=== PATIENT | female | born 1980 | race Caucasian/White ===

== ENCOUNTER 2019-07-28 10:16 | Inpatient (IN) | payer OTHER ==
[2019-07-28 10:42] VITALS: BMI 26.9
--- NOTE | 2019-07-28 11:10 | HP ---
COWS - Scale Resting Pulse: 1= NE 81-100 Sweatin= Chills/Flushing Restless Observation: 0= Sits Still Pupil Size: 0= Normal to Room Light Bone or Joint Aches: 0= None Runny Nose/ Eye Tearin= None GI Upset > 30mins: 2= Nausea/Diarrhea Tremor Observation: 0= None Yawning Observation: 0= None Anxiety or Irritability: 0= None Goose Flesh Skin: 0=Smooth Skin COWS Score: 4 CIWA Score - Admission Criteria OASAS Guidelines: Admission for Medically Managed Detox: Requires at least one of the followin. CIWA greater than 12 2. Seizures within the past 24 hours 3. Delirium tremens within the past 24 hours 4. Hallucinations within the past 24 hours 5. Acute intervention needed for co occurring medical disorder 6. Acute intervention needed for co occurring psychiatric disorder 7. Severe withdrawal that cannot be handled at a lower level of care (continued vomiting, continued diarrhea, abnormal vital signs) requiring intravenous medication and/or fluids 8. Admission ROS [facility] Allergies/Adverse Reactions: Allergies Allergy/AdvReac Type Severity Reaction Status Date / Time No Known Allergies Allergy Verified 07/28/19 10:32 History of Present Illness: pt here requesting detox from heroin use . This report was requested by: Mirella Gibbs | Reference #: [id number] Others' Prescriptions Patient Name: Cele Villagomez Date: 1980 Address: [address] [place] [address] Sex: Female Rx Written Rx Dispensed Drug Quantity Days Supply Prescriber Name 09/30/2018 09/30/2018 oxycodone-acetaminophen 5-325 mg tab 12 4 Halie Arellano MD heroin since age 20 intermittently , longest sobriety 16 years , age 20 036 , relapsed 2/2 " I had a lot of stress upon me " , detox December 2018 [facility] ,went to outpt program since [place] , referred for detox , current daily use 4 bags iv, latest 1 hr 1/2 ago . Denies sharing needles, denies OD , + abscess Left arm currently did not seek medical attention. PMHx : bipolar d/o meds : unknown " they are all in my phone " PSHX : appy 1998, foot surgery peroneal tendon tear repair 2015 shx : worked in [employer] , stopped working 2/2 foot injury , currently unemployed , denies legal issues , lives w/ parents , no children . LMP 9 days ago upt neg . Exam Limitations: No Limitations - Ebola screening Have you traveled outside of the country in the last 21 days: No Have you had contact with anyone from an Ebola affected area: No Do you have a fever: No - Review of Systems Constitutional: Loss of Appetite EENT: reports: Other (glasses) Respiratory: reports: No Symptoms reported Cardiac: reports: No Symptoms Reported GI: reports: Nausea, Poor Appetite : reports: No Symptoms Reported Musculoskeletal: reports: Other (arm pain " where I have the abscess ") Integumentary: reports: See HPI, Other (abscess arm) Neuro: reports: No Symptoms reported Endocrine: reports: No Symptoms Reported Psychiatric: reports: Orientated x3 Patient History - Smoking Cessation Smoking history: Unknown if ever smoked - Substances abused Heroin Substance route: Injection Frequency: Daily Amount used: 4bags Age of first use: 20 Date of last use: 07/28/19 Admission Physical Exam S - Vital Signs Vital Signs: Vital Signs - 24 hr 07/28/19 07/28/19 10:31 10:57 Temperature 98.6 F 98.6 F Pulse Rate 84 84 Respiratory 19 19 Rate Blood Pressure 142/89 142/89 - Physical General Appearance: Yes: No Apparent Distress HEENTM: Yes: EOMI, Hearing grossly Normal, Normocephalic, Normal Voice Respiratory: Yes: Chest Non-Tender, Lungs Clear, Normal Breath Sounds, No Respiratory Distress, No Accessory Muscle Use Neck: Yes: No masses,lesions,Nodules, Trachea in good position Cardiology: Yes: Regular Rhythm, Regular Rate, S1, S2 Abdominal: Yes: Non Tender, Soft Musculoskeletal: Yes: Gait Steady Extremities: Yes: Normal Range of Motion, Non-Tender Neurological: Yes: Fully Oriented, Alert, Motor Strength 5/5, Normal Mood/Affect Integumentary: Yes: Warm, Other (left forearm large area of edema/ erythema, + track nsider numerous superficial excoriations posterior thorax , vamshi UE / LE , states pruritus after using opiates . pt returned from hospital approximately 2 pm , I & D , no ABX recommendation , f/up for S & S of infection .) - Addiitonal Findings: pt sent to [facility] ED for further eval of left FA abscess . Report to Dr Mcmullen - Diagnostic (1) Opioid use Current Visit: No Status: Acute Breathalyzer - Breathalyzer Breathalyzer: 0 Urine Drug Screen - Test Device Lot number: [id number] Expiration date: 04/01/21 - Control Is test valid?: Yes - Results Drug screen NEGATIVE: No Urine drug screen results: MOP-Opiates Inpatient Rehab Admission - Rehab Decision to Admit Inpatient rehab admission?: No
[2019-07-28] MEDS ORDERED: BISMUTH SUBSALICYLATE 262 MG/15 ML BTL PO PRN (14:19)
[2019-07-28] MEDS ORDERED: MENTHOL/PHENOL 1 EACH UD MM PRN (14:19)
[2019-07-28] MEDS ORDERED: MAGNESIUM HYDROX 2400MG/30ML ORAL SUSPENSION 30 ML CUP PO PRN (14:19)
[2019-07-28] MEDS ORDERED: hydrOXYzine PAMOATE 25 MG CAPSULE (FP) PO PRN (14:19)
[2019-07-28] MEDS ORDERED: MAGNESIUM CITRATE 300 ML BOTTLE PO PRN (14:19)
[2019-07-28] MEDS ORDERED: MAG HYDROX/AL HYDROX/SIMETH 30 ML UNIT-DOSE CUP PO PRN (14:19)
[2019-07-28] MEDS ORDERED: ACETAMINOPHEN 325 MG TABLET (FP) PO PRN (14:19)
[2019-07-28] MEDS ORDERED: METHOCARBAMOL 500 MG TABLET PO PRN (14:19)
[2019-07-28] MEDS ORDERED: cloNIDine HCL 0.1 MG TABLET PO PRN (14:20)
[2019-07-28] MEDS ORDERED: METHADONE HCL 10 MG TABLET (FOR DETOX USE ONLY) PO ONE (22:00)
[2019-07-28] MEDS: THIAMINE HCL 100 MG TABLET (FP) PO SCH (22:10)
[2019-07-28] MEDS: ACETAMINOPHEN 325 MG TABLET (FP) PO PRN (22:20)
[2019-07-29] MEDS ORDERED: METHADONE HCL 5 MG TABLET (FOR DETOX USE ONLY) PO ONE (10:00)
[2019-07-29] MEDS: PRENATAL VITAMINS W/ FOLIC ACID TABLET (FP) PO SCH (10:18)
[2019-07-29] MEDS: IBUPROFEN 400 MG TABLET (FP) PO PRN (10:18)
[2019-07-29 10:37] LABS: ALBUMIN 2.9 g/dl (3.4-5.0); BILIRUBIN,TOTAL 0.3 mg/dL (0.2-1); CALCIUM 8.5 mg/dL (8.5-10.1); CREATININE 0.6 mg/dL (0.55-1.3); HEMATOCRIT 35.4 % (32.4-45.2); HEMOGLOBIN 11.8 GM/dL (10.7-15.3); MCH 30.2 pg (25.7-33.7); MCHC 33.4 g/dl (32.0-36.0); MEAN CELL VOLUME 90.5 fl (80-96); MEAN PLT VOLUME 9.5 fl (7.5-11.1); PLATELET COUNT 145 K/MM3 (134-434); RBC 3.91 M/mm3 (3.60-5.2); RDW 14.2 % (11.6-15.6); TOT PROT 5.5 g/dl (6.4-8.2); WHITE BLOOD COUNT 7.6 K/mm3 (4.0-10.0)
--- NOTE | 2019-07-29 15:07 | PN ---
BHS COWS - Scale Resting Pulse: 0= NH 80 or Below Sweatin= Chills/Flushing Restless Observation: 0= Sits Still Pupil Size: 1= Pupils >than Normal Bone or Joint Aches: 1= Mild Discomfort Runny Nose/ Eye Tearin= None GI Upset > 30mins: 1= Stomach Cramp Tremor Observation of Outstretched Hands: 2= Slight Tremor Visible Yawning Observation: 0= None Anxiety or Irritability: 2=Irritable/Anxious Goose Flesh Skin: 3=Piloerection COWS Score: 11 BHS Progress Note (SOAP) Subjective: 39 years old female admitted on 07/28/19 for opiate withdrawal sx management reated with methadone detox regimen left arms abscess D&C clean would with saline pad dry cover with steril gauze secure with wrap left wrist and hand and fingers full range of motion brisk capillary refilled encourage left hand elevation Objective: 07/29/19 15:15 Vital Signs Temperature 97.6 F 07/29/19 13:51 Pulse Rate 66 07/29/19 13:51 Respiratory Rate 18 07/29/19 13:51 Blood Pressure 130/80 07/29/19 13:51 O2 Sat by Pulse Oximetry (%) Laboratory Last Values WBC 7.6 K/mm3 (4.0-10.0) 07/29/19 07:49 RBC 3.91 M/mm3 (3.60-5.2) 07/29/19 07:49 Hgb 11.8 GM/dL (10.7-15.3) 07/29/19 07:49 Hct 35.4 % (32.4-45.2) 07/29/19 07:49 MCV 90.5 fl (80-96) 07/29/19 07:49 MCH 30.2 pg (25.7-33.7) 07/29/19 07:49 MCHC 33.4 g/dl (32.0-36.0) 07/29/19 07:49 RDW 14.2 % (11.6-15.6) 07/29/19 07:49 Plt Count 145 K/MM3 (134-434) 07/29/19 07:49 MPV 9.5 fl (7.5-11.1) 07/29/19 07:49 Sodium 142 mmol/L (136-145) 07/29/19 07:49 Potassium 4.0 mmol/L (3.5-5.1) 07/29/19 07:49 Chloride 111 mmol/L (98-107) H 07/29/19 07:49 Carbon Dioxide 26 mmol/L (21-32) 07/29/19 07:49 Anion Gap 5 MMOL/L (8-16) L 07/29/19 07:49 BUN 11.0 mg/dL (7-18) 07/29/19 07:49 Creatinine 0.6 mg/dL (0.55-1.3) 07/29/19 07:49 Est GFR (CKD-EPI)AfAm 132.14 07/29/19 07:49 Est GFR (CKD-EPI)NonAf 114.01 07/29/19 07:49 Random Glucose 84 mg/dL (74-106) 07/29/19 07:49 Calcium 8.5 mg/dL (8.5-10.1) 07/29/19 07:49 Total Bilirubin 0.3 mg/dL (0.2-1) 07/29/19 07:49 AST 56 U/L (15-37) H 07/29/19 07:49 ALT 50 U/L (13-61) 07/29/19 07:49 Alkaline Phosphatase 70 U/L (45-117) 07/29/19 07:49 Total Protein 5.5 g/dl (6.4-8.2) L 07/29/19 07:49 Albumin 2.9 g/dl (3.4-5.0) L 07/29/19 07:49 POC Urine HCG, Qual Negative 07/28/19 11:00 RPR Titer Nonreactive (NONREACTIVE) 07/29/19 07:49 lab noted Assessment: 07/29/19 15:16 opiate withdrawal sx Plan: continue methadone detox regimen
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
[2019-07-29] MEDS: THIAMINE HCL 100 MG TABLET (FP) PO SCH (22:09)
[2019-07-29] MEDS: TOPIRAMATE 25 MG TABLET (FP) PO SCH (22:09)
[2019-07-29] MEDS: MELATONIN 5 MG TABLETS PO PRN (22:10)
[2019-07-30] MEDS ORDERED: METHADONE HCL 10 MG TABLET (FOR DETOX USE ONLY) PO ONE (10:00)
[2019-07-30] MEDS: PRENATAL VITAMINS W/ FOLIC ACID TABLET (FP) PO SCH (10:30)
[2019-07-30] MEDS: TOPIRAMATE 25 MG TABLET (FP) PO SCH ×2 (10:30→22:11)
[2019-07-30] MEDS: IBUPROFEN 400 MG TABLET (FP) PO PRN (10:31)
--- NOTE | 2019-07-30 11:45 | PN ---
BHS COWS - Scale Resting Pulse: 0= DC 80 or Below Sweatin= Chills/Flushing Restless Observation: 0= Sits Still Pupil Size: 1= Pupils >than Normal Bone or Joint Aches: 1= Mild Discomfort Runny Nose/ Eye Tearin= Nasal Congestion GI Upset > 30mins: 1= Stomach Cramp Tremor Observation of Outstretched Hands: 1= Tremor [place], Not Seen Yawning Observation: 0= None Anxiety or Irritability: 2=Irritable/Anxious Goose Flesh Skin: 0=Smooth Skin COWS Score: 8 BHS Progress Note (SOAP) Subjective: 39 years old female admitted on 07/28/19 for opiate withdrawal sx management treated with methadone detox regimen feeling better today discuss medication assisted treatment program strong recommend order picker narcan from pharmacy Objective: 07/30/19 11:46 Vital Signs Temperature 97.1 F L 07/30/19 09:19 Pulse Rate 54 L 07/30/19 09:19 Respiratory Rate 18 07/30/19 09:19 Blood Pressure 101/63 07/30/19 09:19 O2 Sat by Pulse Oximetry (%) Laboratory Last Values WBC 7.6 K/mm3 (4.0-10.0) 07/29/19 07:49 RBC 3.91 M/mm3 (3.60-5.2) 07/29/19 07:49 Hgb 11.8 GM/dL (10.7-15.3) 07/29/19 07:49 Hct 35.4 % (32.4-45.2) 07/29/19 07:49 MCV 90.5 fl (80-96) 07/29/19 07:49 MCH 30.2 pg (25.7-33.7) 07/29/19 07:49 MCHC 33.4 g/dl (32.0-36.0) 07/29/19 07:49 RDW 14.2 % (11.6-15.6) 07/29/19 07:49 Plt Count 145 K/MM3 (134-434) 07/29/19 07:49 MPV 9.5 fl (7.5-11.1) 07/29/19 07:49 Sodium 142 mmol/L (136-145) 07/29/19 07:49 Potassium 4.0 mmol/L (3.5-5.1) 07/29/19 07:49 Chloride 111 mmol/L (98-107) H 07/29/19 07:49 Carbon Dioxide 26 mmol/L (21-32) 07/29/19 07:49 Anion Gap 5 MMOL/L (8-16) L 07/29/19 07:49 BUN 11.0 mg/dL (7-18) 07/29/19 07:49 Creatinine 0.6 mg/dL (0.55-1.3) 07/29/19 07:49 Est GFR (CKD-EPI)AfAm 132.14 07/29/19 07:49 Est GFR (CKD-EPI)NonAf 114.01 07/29/19 07:49 Random Glucose 84 mg/dL (74-106) 07/29/19 07:49 Calcium 8.5 mg/dL (8.5-10.1) 07/29/19 07:49 Total Bilirubin 0.3 mg/dL (0.2-1) 07/29/19 07:49 AST 56 U/L (15-37) H 07/29/19 07:49 ALT 50 U/L (13-61) 07/29/19 07:49 Alkaline Phosphatase 70 U/L (45-117) 07/29/19 07:49 Total Protein 5.5 g/dl (6.4-8.2) L 07/29/19 07:49 Albumin 2.9 g/dl (3.4-5.0) L 07/29/19 07:49 POC Urine HCG, Qual Negative 07/28/19 11:00 RPR Titer Nonreactive (NONREACTIVE) 07/29/19 07:49 lab noted Assessment: 07/30/19 11:46 opiate withdrawal sx Plan: continue methadone detox regimen
[2019-07-30] MEDS: THIAMINE HCL 100 MG TABLET (FP) PO SCH (22:11)
[2019-07-30] MEDS: ACETAMINOPHEN 325 MG TABLET (FP) PO PRN (22:12)
[2019-07-30] MEDS: MELATONIN 5 MG TABLETS PO PRN (22:13)
[2019-07-31] MEDS ORDERED: METHADONE HCL 5 MG TABLET (FOR DETOX USE ONLY) PO ONE (06:00)
--- NOTE | 2019-07-31 08:49 | DS ---
[facility] Detox Discharge Summary Admission Date: 07/28/19 Discharge Date: 07/31/19 - History Present History: Opioid Dependence - Physical Exam Results Vital Signs: Vital Signs Temperature 98.2 F 07/31/19 06:14 Pulse Rate 53 L 07/31/19 06:14 Respiratory Rate 16 07/31/19 06:14 Blood Pressure 97/57 L 07/31/19 06:14 O2 Sat by Pulse Oximetry (%) - Treatment Hospital Course: Detox Protocol Followed, Detoxed Safely, Responded well, Discharged Condition Good - Medication Discharge Medications: Ambulatory Orders Bupropion HCl [Wellbutrin Xl] 300 mg PO DAILY 07/28/19 Gabapentin [Neurontin -] 300 mg PO BID 07/28/19 Prazosin HCl [Minipress -] 2 mg PO HS 07/28/19 Topiramate [Topamax] 50 mg PO BID 07/28/19 Naloxone HCl [Narcan] 4 mg NS ASDIR PRN #1 spray 07/30/19 - Diagnosis (1) History of bipolar disorder Current Visit: Yes Status: Chronic (2) History of posttraumatic stress disorder (PTSD) Current Visit: Yes Status: Chronic (3) Nicotine dependence Current Visit: Yes Status: Chronic (4) Opioid use disorder Current Visit: Yes Status: Chronic (5) Abscess of left forearm Current Visit: No Status: Acute - AMA Did Patient Leave Against Medical Advice: No
[2019-07-31 09:27] VITALS: BP 129/80; PULSE 61; TEMP 98
[2019-07-31] MEDS: TOPIRAMATE 25 MG TABLET (FP) PO SCH (09:47)
[2019-07-31] MEDS: PRENATAL VITAMINS W/ FOLIC ACID TABLET (FP) PO SCH (09:48)
== END 2019-07-31 11:45 | disposition home or self-care (01) | DRG 773 ==
LOC: YASAS 10:16 → Y3N 14:15
PROVIDERS: ADMIT Allergy & Immunology; ATTEND Allergy & Immunology
PROC: HZ2ZZZZ Detoxification Services for Substance Abuse Treatment (ICD-10-PCS; principal; 2019-07-28)
DX: F11.23 Opioid dependence with withdrawal (principal); F17.210 Nicotine dependence, cigarettes, uncomplicated; F19.24 Other psychoactive substance dependence with psychoactive substance-induced mood disorder; F31.9 Bipolar disorder, unspecified; F43.10 Post-traumatic stress disorder, unspecified; L02.414 Cutaneous abscess of left upper limb; Z91.5 Personal history of self-harm
CPT/HCPCS: 36415; 80053; 81025; 85027; 86593

== ENCOUNTER 2019-07-28 11:50 | Emergency (ER) | payer OTHER ==
[2019-07-28 12:20] VITALS: BP 119/69; PULSE 78; BMI 27.4
[2019-07-28 12:23] VITALS: TEMP 97.2
--- NOTE | 2019-07-28 13:02 | PDOC ---
Attending Attestation - Resident Resident Name: Raquel Haddad - ED Attending Attestation I have performed the following: I have examined & evaluated the patient, The case was reviewed & discussed with the resident, I agree w/resident's findings & plan - HPI HPI: 07/28/19 12:37 39y/o F bipolar disorder, heroine history with detox in the past presented today to [facility] for detox, was found to have L forearm abscess so sent to ED. Pt states she injected in that site about 4d ago, likely infiltrated and had initially small swelling, now increasing in size and more painful. no systemic sxs of f/c, no numbness/tingling/weakness - Physicial Exam PE: 07/28/19 13:02 Afebrile, vital signs stable Alert, no acute distress, slight chills from early detox Heart is regular, lungs are clear Abdomen benign Left arm: There is a 3 cm mobile subcutaneous fluid-filled structure/cyst/ abscess in the dorsal left forearm, tender to palpation, warm to touch, slight surrounding erythema. Healed track snider along that area on the arm, neurovascularly intact distally. - Medical Decision Making 07/28/19 13:03 39-year-old female with history of heroin use and injections presents with left forearm abscess in the area of recently infiltrated heroin injection, neurovascularly intact but with likely early cyst/abscess. No systemic symptoms of infection. Abscess incision and drainage Sent for culture Prophylax with antibiotics Can return to [facility] for detox
--- NOTE | 2019-07-28 13:37 | PDOC ---
History of Present Illness - General Chief Complaint: Wound Stated Complaint: Abscess Boil Time Seen by Provider: 07/28/19 12:06 Past History - Past Medical History Allergies/Adverse Reactions: Allergies Allergy/AdvReac Type Severity Reaction Status Date / Time No Known Allergies Allergy Verified 07/28/19 10:32 Home Medications: Ambulatory Orders Bupropion HCl [Wellbutrin Xl] 300 mg PO DAILY 07/28/19 Gabapentin [Neurontin -] 300 mg PO BID 07/28/19 Prazosin HCl [Minipress -] 2 mg PO HS 07/28/19 Topiramate [Topamax] 50 mg PO BID 07/28/19 Naloxone HCl [Narcan] 4 mg NS ASDIR PRN #1 spray 07/30/19 Asthma: No Cardiac Disorders: No COPD: No Diabetes: No GI Disorders: No Disorders: No HTN: No Kidney Stones: No Seizures: No - Surgical History Appendectomy: Yes (1998) Orthopedic Surgery: Yes (Foot sx tendon repair 2015) - Psycho Social/Smoking Cessation Hx Smoking History: Current every day smoker Have you smoked in the past 12 months: No Number of Cigarettes Smoked Daily: 2 Information on smoking cessation initiated: No Drug/Substance Use Hx: Yes (heroin) Hx Substance Use Treatment: Yes *Physical Exam - Vital Signs Last Vital Signs Temp Pulse Resp BP Pulse Ox 97.2 F L 78 16 119/69 100 07/28/19 12:22 07/28/19 11:50 07/28/19 11:50 07/28/19 11:50 07/28/19 11:50 Procedures - Incision and Drainage I&D Site: Left: Arm Betadine cleansed: Yes Anesthesia: 1% Lidocaine w/ Epi Volume(ml): 3 Blade Size: 11 Attempts: 1 Plain Packing: Yes Complications: none Dressing: Yes Medical Decision Making - Medical Decision Making 07/28/19 13:30 HPI: 39yo F hx bipolar (compliant with 4 medications) and heroin abuse presents with 4 days of growing painful bump on L volar forearm s/p injecting with heroin at that location 4 days ago. Pt usually injects 4 bags per day, but only did 1 bag today because she wanted to detox and went to [facility]. Due to that, pt believes she is withdrawing a bit and endorses some nausea and sweating, consistent with prior withdrawals. Pt only injects IV. 4 days ago pt was injecting in L forearm and believes missed the vein, at that location, bump began to grow gradually, becoming more painful and larger. Endorses warmth. Denies erythema, pus drainage, fever, chills, lightheadednses, CP, SOB, abdominal pain, vomiting, numbness/tingling, weakness. Pt has not injected in that location since 4 days ago. Last tetanus 2017. Tested 3 weeks ago for HIV and other infections and all negative. Denies EtOH or other illicit drug use. Endorses smoking 2 cigarettes per day. Took advil and tylenol 600mg at 0730 today for pain. Hx of abscesses requiring drainage. Wants it drained and to go back to detox. ROS: Constitutional: Positive for diaphoresis. Negative for chills, fever, fatigue. HENT: Negative for sore throat, rhinorrhea, congestion. Eyes: Negative for visual disturbance. Respiratory: Negative for shortness of breath, cough, and wheezing. Cardiovascular: Negative for chest pain, palpitations, and leg swelling. Gastrointestinal: Positive for nausea. Negative for abdominal pain, blood in stool, constipation, diarrhea, and vomiting. Genitourinary: Negative for dysuria, flank pain, and hematuria. Musculoskeletal: Negative for myalgias, back pain, and neck pain. Skin: Positive for painful abscess on L forearm. Neurological: Negative for light-headedness, dizziness, vertigo, syncope, weakness, numbness and headaches. Psychiatric/Behavioral: Positive for heroin use. PE: Gen: Alert, NAD, comfortable-appearing. HEENT: PERRL, EOMI, MMM, NCAT. No conjunctival pallor. Sclera are non-icteric. CV: Regular rate and rhythm. No murmurs, rubs, or gallops. PULM: No resp distress. CTAB, no wheezes, rales, or rhonchi. ABD: soft, NT/ND, no rebound tenderness or guarding, no CVA tenderness. BACK: No TTP of c/t/l-spine. No step-offs or deformities. MSK: No bony deformities. 2+ pulses in all extremities. NEURO: AAOx3. PERRL. No gross CN deficits. Strength and sensation grossly intact throughout. EXTREMITIES: No cyanosis. No clubbing. No edema. No calf tenderness. PSYCH: Normal mood and thought pattern. SKIN: Warm and dry. Normal capillary refill. No jaundice. LUE: approx 1" diameter tender raised mobile fluid-filled structure/abscess in L volar forearm, multiple well healing puncture snider consistent with needlesticks, no purulence or drainage or bleeding, no erythema, +slight warmth , no foreign bodies by POCUS MDM: 39yo F hx bipolar (compliant with 4 medications) and heroin abuse presents with 4 days of growing painful bump on L volar forearm s/p injecting with heroin at that location 4 days ago. Hemodynamically stable, afebrile, LUE neurovascularly intact, exam and POCUS consistent with abscess without foreign body. I&D performed with POCUS with senior resident. Pocket drained of blood only without pus. Packed with packing strip and wrapped with gauze. No e/o cellulitis or systemic signs of infection - no labs, imaging, or abx indicated at this time. Will d/c to [facility] with PCP f/u. Return precautions given. Pt understands all dc instructions and all questions were answered. Discharge - Discharge Information Problems reviewed: Yes Clinical Impression/Diagnosis: Opioid use, Abscess of left forearm Condition: Improved Disposition: HOME - Admission No - Follow up/Referral - Patient Discharge Instructions Patient Printed Discharge Instructions: DI for Incision and Drainage of a Skin Abscess, DI for Skin Abscess Additional Instructions: You have been seen in the Emergency Department for your skin abscess. It has been cut open and drained. It will continue to drain so we have placed packing inside the cut to keep it open so it can drain. This packing will come out by itself with time, or you can remove it in a few days. Keep it covered and wrapped with gauze. Change the dressing daily or if it gets dirty or soaked through. Follow up with your primary care doctor in 2-3 days to check the wound healing. Return to the Emergency Department immediately if you develop any new or worsening symptoms such as a fever, vomiting, or lightheadedness, or any signs of infection of the wound such as redness, warmth, worsening swelling, or pus drainage. - Post Discharge Activity
== END 2019-07-28 13:49 | disposition home or self-care (01) ==
LOC: JER 11:50
PROC: 0J9H0ZZ Drainage of Left Lower Arm Subcutaneous Tissue and Fascia, Open Approach (ICD-10-PCS; principal; 2019-07-28)
DX: L02.414 Cutaneous abscess of left upper limb (principal); F11.10 Opioid abuse, uncomplicated; F17.210 Nicotine dependence, cigarettes, uncomplicated
CPT/HCPCS: 99282-25